=== PATIENT | female | born 1965 | race Caucasian/White ===

== ENCOUNTER 2016-11-02 15:27 | Emergency (ER) | payer OTHER ==
[~2016-11-02] VITALS: Ht 157.5 cm; Wt 159.6 kg
[2016-11-02 15:32] VITALS: BP 152/83; PULSE 91; RESP 22; O2SAT 97
[2016-11-02] MEDS ORDERED: 0.9% Sodium Chloride 1,000 ML IV ONE ×2 (15:45→18:20)
[2016-11-02] MEDS ORDERED: Ondansetron 2 mg/mL 2 mL Inj IVPUSH ONE ×2 (15:45→21:05)
[2016-11-02 16:05] LABS: BASOPHILS % (AUTO) 0.5 % (0-3); EOSINOPHILS % (AUTO) 0.1 % (0-5)
[2016-11-02] MEDS: HYDROmorphone 1 mg/mL Inj IVPUSH PRN ×2 (16:06→20:39)
[2016-11-02 16:14] LABS: MONOCYTES % (AUTO) 10.5 % (4-12); Mean Corpuscular Hemoglobin 27.3 pg (27.0-35.0); Mean Corpuscular Volume 83.1 fL (81-100); NEUTROPHILS % (AUTO) 80.7 % (40-74); Platelet Count 255 bil/L (150-400)
[2016-11-02 16:21] LABS: INR 1.14 ratio
[2016-11-02 16:27] LABS: Magnesium 2.3 mg/dL (1.6-2.6)
[2016-11-02] MEDS ORDERED: Piperacillin-Tazo 3.375 Gm Inj 3.375 GM in Dextrose 5% Minibag Plus 50 ML IV ONE (16:40)
[2016-11-02 17:03] LABS: APPEARANCE,URINE CLEAR (CLEAR,HAZY); COLOR,URINE YELLOW (YELLOW); OCCULT BLOOD,URINE TRACE (NEGATIVE); PH,URINE 6.5 (5.0-8.0); UROBILINOGEN,URINE NORMAL (NORMAL)
--- NOTE | 2016-11-02 17:53 | ED.REPORT ---
HPI-Abd Pain F 40 and Over Date of Service Nov 02, 2016 ED Provider: Mu Barroso MD History of Present Illness: Patient is a 51 y.o. F with past medical history of morbid obesity, DM type II, asthma. She presents to ED POV from [facility] with one week history of generalized abdominal pain associated with nausea, increased urinary frequency, decreased appetite. Patient stated that 5 days ago she went to ED at [facility] and was worked up for a urinary tract infection, UA was negative and patient was discharged. Patient stated that the pain has only escalated spread across her abdomen, she noted experiencing chills, decreased appetite, and back pain, she has been medicating pain wiht canabis with minmal relief Today patient stated she is exhausted, pain today /10, entire abdomen, increases with urination and bowel movements, improves with belching, Last meal 1900 11/01/16 No antibiotic given prior to ED visit LABs at [facility] show WCT 18.7, Neutro 83.3, Abs Neutro 71136 AST 61 ALT 140 Nursing Notes Stated Complaint: SENT FROM [facility]/RUPTURED APPENDIX Chief Complaint: Female Abdominal Pain Nursing Notes Reviewed: Yes Allergies: Coded Allergies: Penicillins (Verified Allergy, Mild, Rash, 11/02/16) Sulfa (Sulfonamide Antibiotics) (Verified Allergy, Unknown, 11/02/16) Scheduled Beclomethasone Dipropionate (Qvar) 8.7 Gm Aer.w.adap 1 PUFF INHALATION BID Metformin (Glucophage) 1,000 Mg Tablet 1,000 MG PO DAILY Scheduled PRN Loratadine (Claritin) 10 Mg Capsule 10 MG PO DAILY PRN PRN allergies Naproxen Sodium (Aleve) 220 Mg Capsule 220 MG PO BID PRN PRN For Pain Ranitidine (Zantac OTC) 75 Mg Tablet 75 MG PO DAILY PRN PRN For Indigestion General Time Seen by MD: 15:50 Chief Complaint Abdominal pain Hx Obtained From: Patient Sudden in Onset?: No Onset Occurred: 1 week ago Location: : Abdomen lower Quality: Sharp, Throbbing Similar Sx Previous: Yes Past Medical History Past Medical History DM Type II Asthma Reports: GERD Past Surgical History Tonsilectomy Bladder surgery for urethral stricture Smoking History Never Smoker Social History Alcohol Use: Denies alcohol use Drug Use: THC (CBD) Review of Systems Basic Review of Systems Eyes: Vision NL, No discharge Hematologic: No bleeding, No bruising Constitutional: Reports: Chills, Fatigue, Denies: Fever Respiratory: Denies: Hemoptysis, Non-productive cough, Pleuritic pain Cardiovascular: Denies: Chest pain, Dyspnea on exertion, Palpitations, Syncope GI: Reports: Abdominal pain, Anorexia, Belching, Diarrhea (liquid orange " feels like acid"), Nausea, Denies: Bloody/tarry stool, Constipation, Hematemesis, Melena, Mucousy stool , Vomiting Female: Reports: Urinary frequency Musculoskeletal: Reports: Back pain Complete sys rev & neg: except as marked. Physical Exam Vital Signs Vital Signs (First) Date Time Temp Pulse Resp B/P Pulse Ox O2 Delivery O2 Flow Rate FiO2 11/02/16 15:32 36.8 91 22 152/83 97 Room Air Head / Eyes: Atraumatic, Normocephalic, PERRL ENT: Mucous membranes moist, Conjunctiva normal, No scleral icterus Neck: Supple, Non-tender, Full range of motion Lymphatic: No lymphadenopathy Extremities: Vascular intact, Neuro intact, No swelling, No tenderness Respiratory / Chest: Breath sounds NL, Breath sounds = bilat, No respiratory distress, No rales, No rhonchi, No wheezing, No stridor Cardiovascular: Heart rate NL, Regular rhythm, Heart sounds NL, Peripheral circulation NL Tenderness/Guarding/Rebound: Positive: Tender LLQ... (Moderate), Tender RLQ... (Moderate) Bowel Sounds / Distention: Positive: Bowel sounds hypoactive Interpretation & Diagnostics Lab Results Interpretation Result Diagram: 11/02/16 1554 11/02/16 1554 Test 11/02/16 15:54 11/02/16 16:07 11/02/16 16:45 White Blood Count 21.7th/mm3 (3.8-10.1) Red Blood Count 4.73mil/mm3 (3.90-5.20) Hemoglobin 12.9g/dL (12.0-15.6) Hematocrit 39.3% (35.0-46.0) Mean Corpuscular Volume 83.1fL (81-100) Mean Corpuscular Hemoglobin 27.3pg (27.0-35.0) Mean Corpuscular Hemoglobin Concent 32.8% (32.0-37.0) Red Cell Distribution Width 14.4% (12.3-15.4) Platelet Count 255bil/L (150-400) Neutrophils (%) (Auto) 80.7% (40-74) Lymphocytes (%) (Auto) 7.1% (14-46) Monocytes (%) (Auto) 10.5% (4-12) Eosinophils (%) (Auto) 0.1% (0-5) Basophils (%) (Auto) 0.5% (0-3) Prothrombin Time 12.2sec (8.1-12.5) Prothromb Time International Ratio 1.14ratio Sodium Level 134mEq/L (134-144) Potassium Level 3.9mEq/L (3.5-5.2) Chloride Level 94mEq/L (97-108) Carbon Dioxide Level 24mmol/L (18-29) Blood Urea Nitrogen 7mg/dL (6-24) Creatinine 0.66mg/dL (0.57-1.00) Estimat Glomerular Filtration Rate 136mL/min (>59) Glucose Level 110mg/dL (60-99) Calcium Level 8.6mg/dL (8.5-10.1) Magnesium Level 2.3mg/dL (1.6-2.6) Total Bilirubin 0.7mg/dL (0.0-1.2) Aspartate Amino Transf (AST/SGOT) 60U/L (0-50) Alanine Aminotransferase (ALT/SGPT) 117U/L (0-32) Alkaline Phosphatase 123U/L (25-150) Total Protein 7.3g/dL (6.4-8.4) Albumin 3.6g/dL (3.4-5.0) Lipase 16U/L (13-60) Procalcitonin 0.18ng/mL (0.00-0.08) Lactic Acid Level 0.9mmol/L (0.4-2.0) Urine Color Yellow (YELLOW) Urine Appearance Clear (CLEAR,HAZY) Urine pH 6.5 (5.0-8.0) Urine Specific [place] >1.030 (1.003-1.035) Urine Protein Tracemg/dL (NEG,TRACE) Urine Glucose (UA) Negativemg/dL (NEGATIVE) Urine Ketones 80mg/dL (NEGATIVE) Urine Occult Blood Trace (NEGATIVE) Urine Nitrite Negative (NEGATIVE) Urine Bilirubin Negative (NEGATIVE) Urine Urobilinogen Normalmg/dL (NORMAL) Urine Leukocyte Esterase Negative (NEGATIVE) Urine RBC 0-2/hpf (0-2) Urine WBC 0-5/hpf (0-5) Urine Epithelial Cells Few/hpf (NONE-MOD) Urine Crystals None seen (NONE SEEN) Urine Bacteria Few/hpf (NONE-FEW) Urine Hyaline Casts None/lpf (NONE) Urine Granular Casts None seen (NONE SEEN) Urine Waxy Casts None seen (NONE SEEN) Urine Red Blood Cell Casts None seen (NONE SEEN) Urine White Blood Cell Casts None seen (NONE SEEN) Urine Mucus None seen (None Seen) Urine Trichomonas None seen (NONE SEEN) Urine Yeast None (NONE SEEN) Urinalysis Comment None Urine Culture Reflexed Not indicated Re-Eval/Medical Decision Med Decision/Clinical Course 51 y.o. F presents with RLQ inflammatory mass, elevated white [place] 18.7 [place] [address]. Consider ruptured appendicitis, intra-abdominal abscess, colitis, maligancy. Evaluate for spread of infection, r/o sepsis Blood cultures orered, pending CBC 21.7 neutro 80.7 CMP AST 60 ALT 117 Lactate 0.9 Start antibtiotics Zosyn in ED x1 IVF hydration NS 1 L Source of Hx: Old records Consultation : Referral / Consult Name: Damon Bhatia MD Consulted With: Surgeon Requested Call at: 16:48 Call Returned at: 16:48 Note: Will review CT and see patient and determine if patient is a surgical canidiate vs medical admit for observation Discharge & Departure Primary Impression: Perforated appendicitis EDSupervising Provider for APC: Mu Barroso MD Attending Statement I discussed patient with resident. I saw and evaluated patient independently. I agree with plan as above. In brief, 51-year-old female with right lower quadrant pain [address] at outside facility consistent with ruptured appendicitis. Our surgeon Dr. Bhatia looked at films and thought likely ruptured appendicitis and needed surgery. Anesthesiology decided not to take patient to the OR given her BMI out of concern that she may not be extubated a ball and we have no ventilated beds. Attempting to transfer to outside facility. Dr. Jose Núñez asked me to assist in transferring this patient. I consulted with Dr. Barrow at [facility]. Evidently they are able to perform surgery with his body mass index. They have accepted her for transfer. Currently she is hemodynamically stable and we are preparing transfer to [facility]. GRICEL MANUEL DO Nov 02, 2016 16:17 Mu Barroso MD Nov 02, 2016 18:11 Carlos Rivers DO Nov 02, 2016 20:36
[2016-11-02] MEDS ORDERED: LORA10CA PO (18:10)
[2016-11-02] MEDS ORDERED: BECL8.7A5 INHALATION (18:10)
[2016-11-02] MEDS ORDERED: NAPR220C11 PO (18:10)
[2016-11-02] MEDS ORDERED: METF1000 PO (18:10)
[2016-11-02] MEDS ORDERED: RANI75TA21 PO (18:10)
[2016-11-02] MEDS ORDERED: Ondansetron 2 mg/mL 2 mL Inj ONE (21:01)
[2016-11-02 21:25] VITALS: BP 149/79; PULSE 89; RESP 18; O2SAT 97
== END 2016-11-02 21:27 | disposition short-term general hospital (02) ==
LOC: SED 15:27
DX: K35.2 Acute appendicitis with generalized peritonitis (principal); E11.9 Type 2 diabetes mellitus without complications; K21.9 Gastro-esophageal reflux disease without esophagitis; Z79.84 Long term (current) use of oral hypoglycemic drugs; Z88.0 Allergy status to penicillin; Z88.2 Allergy status to sulfonamides
CPT/HCPCS: 36415; 80053; 81000; 81025; 82308; 83036; 83605; 83690; 83735; 85025; 85610; 87040; 96361; 96365; 96375; 96376; 99285; J1170; J1200; J2405; J2543; J7030